=== PATIENT | male | born 1985 ===

== ENCOUNTER 2023-04-20 08:44 | Outpatient (CLI) | payer OTHER ==
[2023-04-20 09:51] LABS: HEMATOCRIT 45.3 % (39.0-48.0); HEMOGLOBIN 15.2 g/dL (13-16.00); MEAN CELL VOLUME 93.7 fL (80.0-100.00); MEAN CORPUSCULAR HEMOGLOBIN 31.5 pg (27.00-32.0); MEAN CORPUSCULAR HGB CONC 33.6 g/dl (32.0-36.0); PLATELET COUNT 203 K/uL (150-450); RED BLOOD COUNT 4.83 M/uL (4.00-6.00); RED CELL DISTRIBUTION WIDTH 12.2 % (11.5-14.5)
[2023-04-20 10:20] LABS: ALBUMIN 4.4 gm/dL (3.4-5.0); BILIRUBIN TOTAL 0.36 mg/dL (0.3-1.2); CREATININE SERUM 1.07 mg/dL (0.70-1.30); GFR 78.2; POTASSIUM 4.33 mEq/L (3.5-5.1); TOTAL PROTEIN 8.4 gm/dL (6.4-8.2)
[2023-04-20 11:05] LABS: FOLIC ACID 12.98 ng/ml (4.78-20)
== END 2023-04-20 08:47 | disposition home or self-care (01) ==
LOC: LAB 08:44 → EDBD 08:44 → LAB 08:47
PROVIDERS: ATTEND Internal Medicine Hematology & Oncology
DX: D68.312 Antiphospholipid antibody with hemorrhagic disorder (principal); I82.513 Chronic embolism and thrombosis of femoral vein, bilateral; I82.533 Chronic embolism and thrombosis of popliteal vein, bilateral; E72.11 Homocystinuria; E72.12 Methylenetetrahydrofolate reductase deficiency